=== PATIENT | female | born 1955 | race Caucasian/White ===

== ENCOUNTER 2017-07-02 12:25 | Outpatient (CLI) | payer BC | END 2017-07-02 12:26 | disposition home or self-care (01) | LOC: BICMAMMO 12:25 | PROVIDERS: ATTEND Internal Medicine | DX: Z12.31 Encounter for screening mammogram for malignant neoplasm of breast (principal) | CPT/HCPCS: 77063; 77067 ==

== ENCOUNTER 2017-08-16 07:45 | Outpatient (CLI) | payer BC ==
--- NOTE | 2017-08-16 15:49 | ULT ---
HEPATIC SONOGRAM WITH DUPLEX EVALUATION. HISTORY: Abnormal liver function tests. Liver disease. FINDINGS: Gallbladder has a normal appearance without evidence of stones. The common duct is 0.2 cm diameter. The liver is unremarkable without focal mass or intrahepatic biliary dilatation. No free fluid is v isible. The spleen is 8.5 cm. Good color and spectral Doppler flow are present within the hepatic and splenic arteries. Portal juno ous flow is towards the liver. Hepatic venous flow is towards the IVC. IMPRESSION: No significant abnormalities are demonstrated. No evidence of portal venous hypertension. POS: [facility]
== END 2017-08-16 07:46 | disposition home or self-care (01) ==
LOC: ULT 07:45
PROVIDERS: ATTEND Internal Medicine
DX: R10.10 Upper abdominal pain, unspecified (principal); K76.0 Fatty (change of) liver, not elsewhere classified; R11.0 Nausea; R14.0 Abdominal distension (gaseous)
CPT/HCPCS: 76705

== ENCOUNTER 2017-10-10 10:35 | Outpatient (CLI) | payer BC ==
--- NOTE | 2017-10-10 12:01 | RAD ---
FIVE VIEWS CERVICAL SPINE: HISTORY: Neck pain. Tingling sensation into right arm. FINDINGS: AP, lateral, open mouth odontoid, flexion, and extension views of cervical spine are obtained. There is disk space height loss with anterior and posterior osteophytes at C5-6 and C6-7. Disk space height loss is also seen at C7-T1. No evidence of significant ubaldo- or retrolisthesis is seen on flexion or extension views. IMPRESSION: Changes of spondylosis at C5-6 an C6-7. No evidence of significant facet inability is seen. No evid ence of ubaldo- or retrolisthesis is seen. POS: [facility]
--- NOTE | 2017-10-10 12:21 | MRI ---
MRI CERVICAL SPINE WITHOUT CONTRAST: Date: 10/10/17 HISTORY: Cervical spondylosis. Neck pain. Tingling sensation. COMPARISON: None. TECHNIQUE: MRI cervical spine is performed without intravenous Gadolinium administration. Multisequential, multi planar imaging is performed. FINDINGS: There is T1 marrow signal hypointensity with associated T2 and STIR hyperintensity involving the infe rior end plate of C5 and superior end plate of C6, suggesting Type I Modic change. There is straighte tamir of the normal cervical lordosis. 2.5 mm anterolisthesis of C3 upon C4, 1.7 mm anterolisthesis of C4 upon C5, and 2.6 mm anterolisthesis of C7 upon T1. No significant STIR hyperintensity to suggest vertebral body edema due to fracture. No MR evidence of ligamentous injury. Visualized brain parenchyma, cervicomedullary junction, cervical cord, and the upper thoracic cord pichardo ve normal size and signal intensity. C2-C3: There is a central disc osteophyte complex, without significant central canal stenosis. Neural forami na are patent. C3-C4: Broad based disc osteophyte complex with a central component. There is deformity of the thecal sac an d deformity of the cord. Moderate central canal stenosis. No T2 hyperintensity in the cord. Degenerat german changes in bilateral uncovertebral joints result in severe bilateral foraminal narrowing. C4-C5: There is a broad based disc osteophyte complex that abuts the thecal sac. There is deformity of the t hecal sac without obscuration of the subarachnoid space. Minimal deformity of the midline cord. No T2 hyperintensity in the cord. Mild central canal stenosis. Mild right foraminal narrowing. Moderate le ft foraminal narrowing due to degenerative change of the uncovertebral joint and facet hypertrophy. C5-C6: Broad based disc osteophyte complex effaces the thecal sac. Moderate central canal stenosis. No signa l abnormality in the cord. Degenerative changes in bilateral uncovertebral joints results in moderate bilateral foraminal narrowing. C6-C7: There is a broad based disc osteophyte complex that abuts the thecal sac. No significant central tg l stenosis. Degenerative changes in bilateral uncovertebral joints results in moderate bilateral fora reid narrowing. C7-T1: No significant disc osteophyte complex. No significant central canal stenosis. Foramina are patent. IMPRESSION: Degenerative changes of the cervical spine as above. There is significant central canal stenosis at C 3-C4 and C5-C6. There is no signal abnormality within the cord. POS: [facility]
== END 2017-10-10 10:36 | disposition home or self-care (01) ==
LOC: TBSIIMAG 10:35
PROVIDERS: ATTEND Neurological Surgery
DX: M47.812 Spondylosis without myelopathy or radiculopathy, cervical region (principal); M48.02 Spinal stenosis, cervical region
CPT/HCPCS: 72050; 72141

== ENCOUNTER 2017-10-25 08:04 | Outpatient (CLI) | payer BC ==
[2017-10-25 09:22] LABS: Hemoglobin 14.8 g/dL (12.0-16.0); Mean Corpuscular Hemoglobin 30.5 pg (27.0-31.0); Mean Corpuscular Volume 89.6 fl (81.0-99.0); Mean Platelet Volume 7.6 fL (7.4-10.4); Platelet Count 226 thou/uL (130-400); RBC Distribution Width 11.3 % (11.5-14.5); Red Blood Cell (RBC) Count 4.85 mill/uL (4.20-5.40); White Blood Cell (WBC) Count 5.4 thou/uL (4.8-10.8)
[2017-10-25 09:43] LABS: Anion Gap 15 mmol/L (10-20); BUN (Urea Nitrogen) 13 mg/dL (9.8-20.1); Calc. Creatinine Clearance 0 mL/min (70-130); Calcium 9.6 mg/dL (7.8-10.44); Carbon Dioxide 24 mmol/L (23-31); Chloride 107 mmol/L (98-107); Estimated GFR-MDRD 73; Glucose 100 mg/dL (80-115); Potassium 4.6 mmol/L (3.5-5.1); Sodium 141 mmol/L (136-145)
--- NOTE | 2017-10-25 14:08 | EKG ---
Test Reason : Blood Pressure : / mmHG Vent. Rate : 052 BPM Atrial Rate : 052 BPM P-R Int : 172 ms QRS Dur : 080 ms QT Int : 428 ms P-R-T Axes : 053 049 059 degrees QTc Int : 398 ms Sinus bradycardia Low voltage QRS Cannot rule out Anterior infarct , age undetermined Abnormal ECG Confirmed by KAREN CHAO ([id number]) on 10/25/2017 2:07:36 PM Referred By: AMBER Confirmed By:KAREN CHAO
== END 2017-10-25 08:05 | disposition home or self-care (01) ==
LOC: LABBT 08:04
PROVIDERS: ATTEND Neurological Surgery
DX: Z01.818 Encounter for other preprocedural examination (principal); M47.812 Spondylosis without myelopathy or radiculopathy, cervical region
CPT/HCPCS: 80048; 85027; 93005; 93010

== ENCOUNTER 2017-10-28 08:24 | Observation (INO) | payer BC ==
[2017-10-25 08:26] VITALS: BMI 33.2
[2017-10-28] MEDS ORDERED: CEFAZOLIN/Water 2 GM/20 ML SYRINGE ONE (09:10)
[2017-10-28] MEDS ORDERED: Sodium Chloride 0.9% 10 ML ONE (10:14)
[2017-10-28] MEDS ORDERED: Fentanyl 100 MCG/2 ML VIAL ONE ×4 (10:49→13:01)
[2017-10-28] MEDS ORDERED: hydrALAZINE 20 MG/ML VIAL ONE (12:20)
[2017-10-28] MEDS ORDERED: Promethazine HCl 25 MG/ML VIAL IM/IV PRN (12:34)
[2017-10-28] MEDS ORDERED: Ondansetron HCl/PF 4 MG/2 ML Vial IVP PRN ×3 (12:34→14:45)
[2017-10-28] MEDS ORDERED: hydrALAZINE 20 MG/ML VIAL SLOW IVP PRN (12:36)
[2017-10-28] MEDS ORDERED: Promethazine HCl 25 MG/ML VIAL IM PRN (12:37)
[2017-10-28] MEDS ORDERED: HYDROcodone/Acetaminophen 10/325 mg Tablet PO PRN ×2 (12:37)
[2017-10-28] MEDS ORDERED: Milk Of Magnesia 30 ML UDCUP PO PRN (12:37)
[2017-10-28] MEDS ORDERED: diphenhydrAMINE 25 MG CAP PO PRN (12:37)
[2017-10-28] MEDS ORDERED: traMADol HCl 50 MG TAB PO PRN ×2 (12:37)
[2017-10-28] MEDS ORDERED: Morphine 4 MG/ML Carpuject SLOW IVP PRN (12:37)
[2017-10-28] MEDS ORDERED: diphenhydrAMINE 50 MG/ML VIAL IVP PRN (12:37)
[2017-10-28] MEDS ORDERED: Promethazine HCl 12.5 MG SUPP PR PRN (12:37)
[2017-10-28] MEDS ORDERED: Promethazine 25 MG TAB PO PRN (12:37)
[2017-10-28] MEDS ORDERED: Sodium Chloride 0.9% 1,000 ML IV SCH (12:37)
--- NOTE | 2017-10-28 13:15 | OP ---
DATE OF PROCEDURE: 10/28/2017 SURGEON: Hari Robbins M.D. STRAWHAT BLOCKING OPERATOR: Dr. Cleveland. PROCEDURE: Anterior cervical diskectomy C3 through C6, interbody arthrodesis, intravertebral biomech anical device, local morselized autograft, demineralized bone matrix, anterior titanium instrumentati on C3-C6. PROCEDURE IN DETAIL: The patient was brought to the operating room and intubated. She was positione d supine, head in modest extension on a gel-filled donut. Incision was made in the right precervical area and dissecting medial to the sternocleidomastoid muscle, identified the anterior cervical spine and our level was confirmed by x-ray. We debrided extensive and severe anterior osteophytic disease , placed distraction across the disc spaces, and completely decompressed the intravertebral discs radha n to the level of the dura affected level. Complete decompression was achieved at each level. The b sepideh endplates were then decorticated for the purpose of arthrodesis and appropriately sized intravert ebral biomechanical PEEK device was brought into the field, filled with demineralized bone matrix and local morselized autograft, and tapped in place securely at C3-4, C4-5 and C5-6. Next, an anterior plate was brought into the field and secured to C3, C4, C5, and C6 using two 14 mm screws at each lev el. The wound was then extensively irrigated, immaculate hemostasis was secured, and the wound was c losed in anatomic layers.
[2017-10-28] MEDS: tiZANidine HCl 4 MG TAB PO PRN ×2 (14:49→20:49)
[2017-10-28] MEDS ORDERED: Ketorolac Tromethamine 30 MG/ML VIAL ONE (15:12)
[2017-10-28] MEDS ORDERED: PHENYLEPHRINE-NS 100 MCG/ML 10 ML SYRINGE ONE (15:12)
[2017-10-28] MEDS ORDERED: Dexamethasone 20 MG/5 ML VIAL ONE (15:12)
[2017-10-28] MEDS ORDERED: PROPOFOL 200 MG/20 ML VIAL ONE (15:12)
[2017-10-28] MEDS ORDERED: Lisinopril 5 MG TAB PO SCH (15:45)
[2017-10-28] MEDS ORDERED: CEFAZOLIN/Water 2 GM/20 ML SYRINGE SLOW IVP SCH (17:00)
[2017-10-28] MEDS: CEFAZOLIN/Water 2 GM/20 ML SYRINGE SLOW IVP SCH (20:46)
[2017-10-29] MEDS: CEFAZOLIN/Water 2 GM/20 ML SYRINGE SLOW IVP SCH (05:00)
--- NOTE | 2017-10-29 06:53 | DIS ---
DATE OF ADMISSION: 10/28/2017 DATE OF DISCHARGE: 10/29/2017 ATTENDING PHYSICIAN: Hari Robbins M.D., HOSPITAL COURSE: Patient is a 62-year-old female who was admitted following C3-C6 ACDF for cervical degenerative disk disease. There were no intraoperative complications once the patient was transitioned to the med/surg floor following the surgery for observation. Her pain was well control led with p.o. medications. She was tolerating regular diet and voiding appropriately. She has been ambulatory throughout the department, 5/5 strength throughout. No sensation changes in the upper ext remity. We will plan to discharge the patient home this morning. I have discussed home care precaut ions and follow up with her office in 2 weeks. I have let scripts for Clements 10/ and Zanaflex. Pl ease reach out to Neurosurgery for additional questions or concerns.
[2017-10-29 08:36] VITALS: BP 158/84
[2017-10-29] MEDS ORDERED: Vitami E (Dl,Tocopheryl Acet) 400 UNITS CAP PO SCH (09:00)
[2017-10-29] MEDS ORDERED: Fish Oil 1,000 MG CAP PO SCH (09:00)
[2017-10-29] MEDS ORDERED: Lisinopril 5 MG TAB PO SCH (09:00)
[2017-10-29] MEDS ORDERED: [UNRECOGNIZED DRUG - OTHER] PO SCH (09:00)
[2017-10-29] MEDS ORDERED: Ascorbic Acid 500 mg Chewable Tablet PO SCH (09:00)
[2017-10-29 09:40] VITALS: TEMP 98
== END 2017-10-29 10:07 | disposition home or self-care (01) ==
LOC: SDC 08:24 → SURG A 14:11
PROVIDERS: ADMIT Neurological Surgery; ATTEND Neurological Surgery
PROC: 0RG20A0 Fusion of 2 or more Cervical Vertebral Joints with Interbody Fusion Device, Anterior Approach, Anterior Column, Open Approach (ICD-10-PCS; principal; 2017-10-28)
DX: M50.322 Other cervical disc degeneration at C5-C6 level (principal); M48.02 Spinal stenosis, cervical region; Z88.0 Allergy status to penicillin; Z88.2 Allergy status to sulfonamides; Z98.890 Other specified postprocedural states
CPT/HCPCS: 76001; 96361; 96374; 96376; A4216; C1713; C1776; G0378; J0360; J1100; J1885; J2704; J3010; J3490

== ENCOUNTER 2017-11-12 15:06 | Outpatient (CLI) | payer BC ==
--- NOTE | 2017-11-12 15:31 | RAD ---
3 VIEWS CERVICAL SPINE: Date: 11/12/17 HISTORY: Cervical spondylosis, M47.12. AP, lateral, and open-mouth odontoid views of cervical spine obtained. Comparison made to previous exam from 11/09/15. FINDINGS: Images demonstrate ACDF with fusion of the C3, C4, C5, and C6 vertebra. Plates and screws are in good position. Disc spaces have disc spacers in place and are in good alignment. There is some disc space height loss at the C6-7 level, unchanged since the previous exam, compatible with changes of spondyl osis. No evidence of acute fractures or bony lesions seen. IMPRESSION: Mid cervical changes of spondylosis. No acute abnormality seen. POS: [facility]
== END 2017-11-12 15:07 | disposition home or self-care (01) ==
LOC: TBSIIMAG 15:06
PROVIDERS: ATTEND Neurological Surgery
DX: M47.12 Other spondylosis with myelopathy, cervical region (principal)
CPT/HCPCS: 72040

== ENCOUNTER 2017-12-31 15:25 | Outpatient (CLI) | payer BC ==
--- NOTE | 2017-12-31 16:06 | RAD ---
THREE VIEWS CERVICAL SPINE: Date: 12-31-17 History: Cervical spinal stenosis. Follow up neck surgery. Comparison: 11-12-17 FINDINGS: C1 to the cervicothoracic junction is seen on the lateral view. Post-surgical change related to anter ior cervical fusion are again noted with a plate and screws transfixing the C3-4, C4-5, and C5-6 leve ls. There is no change in alignment of the hardware. Intradiscal prostheses are noted. Surgical clips are seen anterior to the plate. No fracture or subluxation is seen. There are degenerative changes a gain present at the C6-7 and to a lesser extent, C7-T1 levels. There is no fracture or subluxation id entified. There has been no interval change when compared to the prior study. IMPRESSION: 1. Stable post-surgical changes of the cervical spine related to anterior cervical fusion. Degenerati ve changes are seen below the level of post-surgical change, which is stable from prior exam. POS: [facility]
== END 2017-12-31 15:26 | disposition home or self-care (01) ==
LOC: TBSIIMAG 15:25
PROVIDERS: ATTEND Neurological Surgery
DX: M48.02 Spinal stenosis, cervical region (principal); M47.892 Other spondylosis, cervical region; Z98.1 Arthrodesis status
CPT/HCPCS: 72040

== ENCOUNTER 2018-07-29 08:51 | Outpatient (CLI) | payer BC | END 2018-07-29 08:52 | disposition home or self-care (01) | LOC: BICMAMMO 08:51 | PROVIDERS: ATTEND Internal Medicine | DX: Z12.31 Encounter for screening mammogram for malignant neoplasm of breast (principal) | CPT/HCPCS: 77063; 77067 ==

== ENCOUNTER 2018-10-30 08:45 | Inpatient (IN) | payer BC ==
[2018-10-30 09:48] VITALS: BMI 31.0
[2018-11-04] MEDS ORDERED: Vancomycin HCl 1.5 GM in Sodium Chloride 0.9% 250 ML 300 ML IVPB SCH (08:45)
[2018-11-04] MEDS ORDERED: Tranexamic Acid 1,000 MG in Sodium Chloride 0.9% 100 ML IVPB SCH (09:00)
[2018-11-04] MEDS ORDERED: Levofloxacin 500 mg/D5W 100 ml Premix Bag ONE (09:17)
[2018-11-04] MEDS ORDERED: Tranexamic Acid 1,000 MG/10 ML VIAL ONE ×2 (09:17→13:41)
[2018-11-04] MEDS ORDERED: Sodium Chloride 0.9% 100 ML ONE (09:17)
[2018-11-04] MEDS ORDERED: Fentanyl 100 MCG/2 ML VIAL ONE ×3 (09:42→13:04)
[2018-11-04] MEDS ORDERED: Midazolam HCl 2 mg/2 ml Vial ONE (09:42)
[2018-11-04] MEDS ORDERED: HYDROcodone/Acetaminophen 10/325 mg Tablet PO PRN ×2 (10:24)
[2018-11-04] MEDS ORDERED: Acetaminophen 325 MG TAB PO PRN (10:24)
[2018-11-04] MEDS ORDERED: Promethazine HCl 25 MG/ML VIAL IM PRN ×3 (10:24→12:32)
[2018-11-04] MEDS ORDERED: Zolpidem Tartrate 5 MG TAB PO PRN ×2 (10:24→10:45)
[2018-11-04] MEDS ORDERED: diphenhydrAMINE 25 MG CAP PO PRN ×2 (10:24→10:45)
[2018-11-04] MEDS ORDERED: Ondansetron PF 4 MG/2 ML Vial IVP PRN ×2 (10:24→10:45)
[2018-11-04] MEDS ORDERED: traMADol HCl 50 MG TAB PO PRN ×3 (10:24→10:45)
[2018-11-04] MEDS ORDERED: Ropivacaine 0.2% HCl/PF 20 ML ONE (10:35)
[2018-11-04] MEDS ORDERED: Phenylephrine HCL 10 MG/ML VIAL ONE (10:35)
[2018-11-04] MEDS ORDERED: Lidocaine 2% Jelly 5 ML TUBE ONE (10:35)
[2018-11-04] MEDS ORDERED: diphenhydrAMINE 50 MG/ML VIAL IM PRN (10:45)
[2018-11-04] MEDS ORDERED: HYDROcodone/Acetaminophen 5/325 mg Tablet PO PRN ×2 (10:45)
[2018-11-04] MEDS ORDERED: Bupivacaine 0.25% 10 ML VIAL EPIDURAL PRN (10:45)
[2018-11-04] MEDS ORDERED: diphenhydrAMINE 50 MG/ML VIAL IVP PRN (10:45)
[2018-11-04] MEDS ORDERED: Hydrocerin (Eucerin) Cream 120 gm Jar TOP PRN (10:45)
[2018-11-04] MEDS ORDERED: Naloxone HCl 0.4 mg/ml Vial IVP PRN (10:45)
[2018-11-04] MEDS ORDERED: Ketorolac Tromethamine 30 MG/ML VIAL IVP PRN (10:45)
[2018-11-04] MEDS ORDERED: Promethazine HCl 25 MG SUPP PR PRN (10:45)
[2018-11-04] MEDS ORDERED: Naloxone HCl 0.4 mg/ml Vial IV PRN (10:45)
[2018-11-04] MEDS ORDERED: Promethazine HCl 25 MG/ML VIAL SLOW IVP PRN (12:32)
[2018-11-04] MEDS ORDERED: Ondansetron HCl/PF 4 MG/2 ML Vial IVP PRN (12:32)
[2018-11-04] MEDS ORDERED: Bupivacaine 0.25% HCL 30 ML VIAL ONE (13:04)
--- NOTE | 2018-11-04 13:09 | RAD ---
XR Hip Lt 2-3 View HISTORY: Postop COMPARISON: None. FINDINGS: There is a left hip prosthesis in place. The prosthesis is in good position. There is some lucency associated with the greater trochanter, this is seen on the AP projection only. It could be an overlying skinfold but potentially a nondisplaced fracture. Follow-up film may be helpful in as sessment. IMPRESSION: Questionable nondisplaced fracture of the greater trochanter region.
[2018-11-04] MEDS ORDERED: Fentanyl 5 mcg/Bup 0.075% Cadd 100 ML EPIDURAL ONE (13:16)
[2018-11-04] MEDS ORDERED: Acetaminophen 1,000 MG in Premix Bag 1 BAG IVPB SCH (13:30)
[2018-11-04] MEDS ORDERED: Ketorolac Tromethamine 30 MG/ML VIAL IVP SCH (13:30)
[2018-11-04] MEDS ORDERED: Dexamethasone 20 MG/5 ML VIAL ONE (14:39)
[2018-11-04] MEDS ORDERED: Glycopyrrolate 0.2 MG/ML 5 ML SYRINGE ONE (14:39)
[2018-11-04] MEDS ORDERED: Ondansetron PF 4 MG/2 ML Vial ONE (14:39)
[2018-11-04] MEDS ORDERED: PROPOFOL 200 MG/20 ML VIAL ONE (14:39)
[2018-11-04] MEDS ORDERED: Rocuronium Bromide 10 MG/ML (10ML VIAL) ONE (14:39)
[2018-11-04] MEDS ORDERED: PHENYLEPHRINE-NS 100 MCG/ML 10 ML SYRINGE ONE (14:39)
[2018-11-04] MEDS: Ketorolac Tromethamine 30 MG/ML VIAL IVP SCH ×2 (15:48→22:05)
--- NOTE | 2018-11-04 20:01 | PRG ---
DATE OF SERVICE: 11/04/2018 SUBJECTIVE: Ms. Benson is a very pleasant 63-year-old female with past medical history significant for hypertension, hypothyroidism, and severe osteoarthritis, who presented to the hospital today for elective left total hip arthroplasty with Dr. Walker. The Hospitalist Service has been consulted for further medical management of this patient. She did undergo successful left total hip arthroplasty this morning with Dr. Walker. She tolerated the procedure very well. She is seen postoperatively up in her room. She is sitting up in bed. She has absolutely no complaints at this time. She has no chest pain or shortness of breath. She has no pain, her epidural is still in place. She has been up out of the bed since her procedure. She has no nausea or vomiting. She is tolerating her diet. OBJECTIVE: VITAL SIGNS: Blood pressure 104/74, pulse 63, temperature 97.7, and respirations 18. GENERAL: The patient is a well-appearing, moderately obese female, sitting up in bed, in no acute distress. HEENT: Head, atraumatic and normocephalic. Mucous membranes are moist. Extraocular movements intact. NECK: Supple. No lymphadenopathy. She does have a left 2-inch scar present from previous cervical procedure. No carotid bruits. CV: S1 and S2. Regular rate and rhythm. No appreciable murmurs, rubs, or gallops. LUNGS: Regular respiratory rate and pattern. Clear to auscultation bilaterally. ABDOMEN: Positive bowel sounds. Soft. No masses. Nontender. NEUROLOGIC: Cranial nerves 2 through 12 are intact. She is nonfocal. SKIN: Warm and dry. No rashes. EXTREMITIES: No lower extremity pitting edema. Her left hip is dressed and wrapped. LABORATORY DATA: From October 30, 2018; white blood cell count 8, RBC 4.59, hemoglobin 14, hematocrit 41.9%, platelet count is 244. Sodium 139, potassium 4.0, chloride 105, BUN 15, creatinine 0.78. ASSESSMENT: 1. Status post left total hip arthroplasty with Dr. Walker performed today. 2. Hypothyroidism. 3. Hypertension. PLAN: We will continue the patient's home dose of [place] Thyroid. Vital sign review reveals systolic readings of 100s to 120s, and we will hold off on adding her antihypertensive medications at this time. We will continue to monitor her vital signs closely. The patient's pain is well controlled. We will continue postoperative orders per Dr. Walker. The care of this patient has been discussed with Dr. Santoyo, who agrees with plan as outlined above. Job ID: [id number]
[2018-11-04] MEDS: Aspirin 81 mg Enteric Coated Tablet PO SCH (20:33)
[2018-11-04] MEDS ORDERED: Vancomycin HCl 1 GM in Premix Bag 1 BAG IVPB SCH (21:00)
[2018-11-05] MEDS: Fentanyl 5 mcg/Bup 0.075% Cadd 100 ML EPIDURAL SCH ×2 (04:28→21:35)
[2018-11-05 05:13] LABS: Mean Corpuscular HGB CONC 32.5 g/dL (32.0-36.0); Mean Corpuscular Hemoglobin 29.8 pg (27.0-31.0); Mean Corpuscular Volume 91.8 fL (78.0-98.0); Mean Platelet Volume 7.4 fL (7.4-10.4); Platelet Count 202 thou/uL (130-400); RBC Distribution Width 11.5 % (11.5-14.5); White Blood Cell (WBC) Count 15.6 thou/uL (4.8-10.8)
[2018-11-05] MEDS: Ketorolac Tromethamine 30 MG/ML VIAL IVP SCH ×3 (06:15→21:34)
--- NOTE | 2018-11-05 07:52 | OP ---
DATE OF PROCEDURE: 11/04/2018 PREOPERATIVE DIAGNOSIS: Degenerative joint disease of the left hip. POSTOPERATIVE DIAGNOSIS: Degenerative joint disease of the left hip. PROCEDURES PERFORMED: Left total hip arthroplasty using a Kress Accolate 3.5 stem, standard 36 mm head, and a 50 mm PSL cup. ROTARY SHEAR CUTTER: Abilio. BLOOD LOSS: 100. SPECIMEN: None. DRAIN: None. COMPLICATION: None. PROCEDURE IN DETAIL: After informed consent was obtained in the preoperative holding area, the patient was taken to the operative suite where general anesthesia was induced. The patient was then positioned in the lateral decubitus position. The hip was then prepped and draped in usual sterile fashion. The patient received preoperative antibiotics. Prior to incision, time-out was called and all members of the surgical team agreed upon site, surgeon, and patient. After this, a longitudinal incision was made directly over the trochanter, noted by palpation extending 2 fingerbreadths above and below the trochanter. The deeper subcutaneous layer was undermined with Bovie electrocautery. The iliotibial band was encountered and incised sharply and the plane below this was developed bluntly. A Charnley retractor was placed to hold this opened. The lateral aspect of the trochanter and the abductor muscles were encountered and then reflected anteriorly off the trochanter using Bovie electrocautery. Once this was completed, the anterior capsule was then encountered and identified and copious capsulotomy was carried out, exposing the femoral neck and head. Dislocation maneuver was then performed and an in situ provisional neck cut was then made using the oscillating saw. Attention was then turned to acetabular preparation and sequential reaming was carried out up to the appropriate diameter. A trial was then malleted into place with good firm resistance and no pullout. The permanent acetabular shell was then malleted squarely into place, as was the appropriate liner. Once completed, the wound was copiously irrigated and attention was then turned to femoral preparation. Flexion and external rotation were performed of the exposed thigh and femoral elevators were then placed at the proximal aspect of the wound. Canal finder was used to establish the length of the canal and sequential reaming was carried out, followed by broaching. Once the appropriate stability was established with the trial broaches with flexion, extension and rotational stability, we did trial with neutral and 2 mm offset incremental necks. Once the appropriate size was decided upon, with good stability noted with flexion, extension, internal and external rotation and shuck being negative, we removed the femoral trial broach and malleted into place the permanent prosthesis with good firm fit, which was also stable to rotation. Again, the hip felt very stable to flexion, extension, internal and external rotation. Leg lengths appeared near anatomic clinically and we were quite happy with prosthesis placement. Copious irrigation was then carried out through the entirety of the wound. Primary closure of the abductors was accomplished with interrupted #2 Vicryl [id number] stitches and the IT band was then closed with interrupted #2 Vicryl, oversewn with a #2 running barbed Quill stitch. Subcutaneous fascia was closed with running barbed Quill stitch and a subcuticular Monocryl barbed Quill stitch was used for skin closure and augmented with skin cement. A sterile dressing was applied. The procedure was terminated without any complication. All counts were correct. The patient was awakened in the operative suite and taken to the recovery room in stable condition. Job ID: [id number]
[2018-11-05] MEDS: Senokot S 8.6-50 MG TAB PO SCH ×2 (08:59→21:09)
[2018-11-05] MEDS: Aspirin 81 mg Enteric Coated Tablet PO SCH ×2 (08:59→21:23)
[2018-11-05] MEDS: Ferrous Gluconate 324 MG TAB PO SCH ×2 (09:00→21:09)
[2018-11-05] MEDS: Multivitamin W/ Minerals 1 TAB PO SCH (09:00)
[2018-11-05] MEDS: Ascorbic Acid 500 mg Chewable Tablet PO SCH (09:01)
--- NOTE | 2018-11-05 11:45 | PDOC.PN ---
- Subjective Encounter Start Date: 11/05/18 Encounter Start Time: 08:10 -: old records requested/rev Patient seen and examined. No new complaints. No overnight events - Objective MAR Reviewed: Yes Vital Signs & Weight: Vital Signs (12 hours) Temp Pulse Resp BP Pulse Ox 11/05/18 08:32 98.7 F 75 15 95/58 L 92 L 11/05/18 04:22 97.9 F 71 16 102/61 94 L 11/05/18 00:56 98.6 F 71 20 98/52 L 93 L Weight Admit Weight 198 lb Weight 198 lb I&O: 11/04/18 11/05/18 11/06/18 06:59 06:59 06:59 Intake Total 625 Output Total 1000 Balance -375 Result Diagrams: 11/05/18 04:48 Phys Exam - Physical Examination Constitutional: NAD HEENT: PERRLA, moist MMs, sclera anicteric Neck: no JVD, supple Respiratory: no wheezing, no rales, no rhonchi Cardiovascular: RRR, no significant murmur, no rub Gastrointestinal: soft, non-tender, no distention, positive bowel sounds Musculoskeletal: no edema, pulses present epidural in place Neurological: non-focal, normal sensation Lymphatic: no nodes Psychiatric: normal affect, A&O x 3 Skin: no rash, normal turgor Dx/Plan (1) Status post left hip replacement Code(s): Z96.642 - PRESENCE OF LEFT ARTIFICIAL HIP JOINT Status: Acute (2) Anemia, normocytic normochromic Code(s): D64.9 - ANEMIA, UNSPECIFIED Status: Acute (3) Hypertension Code(s): I10 - ESSENTIAL (PRIMARY) HYPERTENSION Status: Chronic (4) Hypothyroidism Code(s): E03.9 - HYPOTHYROIDISM, UNSPECIFIED Status: Chronic (5) Obesity (BMI 30.0-34.9) Code(s): E66.9 - OBESITY, UNSPECIFIED Status: Chronic - Plan cont current plan of care, plan discussed w/ family, PT/OT * medication reviewed as below * symptomatic treatment * continue epidural as per anesthesia * medically stable * code status- full code * continue aspirin for dvt prophylaxis as per protocol * pain controlled * home meds. Review of Systems - Review of Systems ENT: negative: Ear Pain, Ear Discharge, Nose Pain, Nose Discharge, Nose Congestion, Mouth Pain, Mouth Swelling, Throat Pain, Throat Swelling, Other Respiratory: negative: Cough, Dry, Shortness of Breath, Hemoptysis, SOB with Excertion, Pleuritic Pain, Sputum, Wheezing Cardiovascular: negative: chest pain, palpitations, orthopnea, paroxysmal nocturnal dyspnea, edema, light headedness, other Gastrointestinal: negative: Nausea, Vomiting, Abdominal Pain, Diarrhea, Constipation, Melena, Hematochezia, Other Genitourinary: negative: Dysuria, Frequency, Incontinence, Hematuria, Retention , Other Musculoskeletal: negative: Neck Pain, Shoulder Pain, Arm Pain, Back Pain, Hand Pain, Leg Pain, Foot Pain, Other Skin: negative: Rash, Lesions, Nabeel, Bruising, Other - Medications/Allergies Allergies/Adverse Reactions: Allergies Allergy/AdvReac Type Severity Reaction Status Date / Time Penicillins Allergy Verified 10/30/18 09:47 Sulfa (Sulfonamide Allergy Verified 10/30/18 09:47 Antibiotics) Medications: Current Medications Hydrocodone Bitart/Acetaminophen ([place] 5/325) 1 tab PO Q4H PRN PRN Reason: Mild Pain 1-3 Hydrocodone Bitart/Acetaminophen ([place] 5/325) 2 tab PO Q4H PRN PRN Reason: For Moderate Pain 4-6 Ascorbic Acid (Vitamin C) 2,000 mg PO DAILY [facility] Last Admin: 11/05/18 09:01 Dose: 2,000 mg Aspirin (Ecotrin) 81 mg PO BID [facility] Last Admin: 11/05/18 08:59 Dose: 81 mg Bupivacaine HCl (Marcaine) 5 ml EPIDURAL ONE PRN PRN Reason: UNCONTROLLED PAIN Stop: 11/07/18 10:46 Cholecalciferol (Vitamin D3) 1,500 units PO DAILY [facility] Last Admin: 11/05/18 09:00 Dose: 1,500 units Diphenhydramine HCl (Benadryl) 25 mg PO Q3H PRN PRN Reason: Itching Diphenhydramine HCl (Benadryl) 25 mg IM Q3H PRN PRN Reason: Itching Diphenhydramine HCl (Benadryl) 25 mg IVP Q3H PRN PRN Reason: Itching Last Admin: 11/04/18 17:07 Dose: 25 mg Emollient Cream (Hydrocerin Cream) 0 gm TOP PRN PRN PRN Reason: Itching Ferrous Gluconate (Fergon) 324 mg PO BID [facility] Last Admin: 11/05/18 09:00 Dose: 324 mg Fentanyl Citrate (Fentanyl/Bupivacaine) 100 mls @ 6 mls/hr EPIDURAL INF [facility] Last Admin: 11/05/18 04:28 Dose: 100 mls Iron/Minerals/Multivitamins (Theragran M) 1 tab PO DAILY [facility] Last Admin: 11/05/18 09:00 Dose: 1 tab Ketorolac Tromethamine (Toradol) 15 mg IVP Q8HR [facility] Stop: 11/06/18 14:01 Last Admin: 11/05/18 06:15 Dose: 15 mg Miscellaneous Information (Communication Order-Pharmacy) 1 each FS ASDIR [facility] Naloxone HCl (Narcan) 0.2 mg IV Q5MIN PRN PRN Reason: RR <=8 OR OBTUNDED/UNAROUSABLE Naloxone HCl (Narcan) 0.1 mg IVP Q15MIN PRN PRN Reason: URINARY RETENTION Ondansetron HCl (Zofran) 4 mg IVP Q6H PRN PRN Reason: Nausea/Vomiting Ondansetron HCl (Zofran) 4 mg IVP Q6H PRN PRN Reason: Nausea/Vomiting Promethazine HCl (Phenergan) 12.5 mg IM Q4H PRN PRN Reason: Nausea/Vomiting Promethazine HCl (Phenergan) 12.5 mg IM Q4H PRN PRN Reason: Nausea Promethazine HCl (Phenergan Suppository) 25 mg TX Q4H PRN PRN Reason: Nausea/Vomiting Senna/Docusate Sodium (Senokot S) 2 tab PO BID [facility] Last Admin: 11/05/18 08:59 Dose: 2 tab Sodium Chloride (Flush - Normal Saline) 10 ml IVF PRN PRN PRN Reason: Saline Flush Thyroid ([place] Thyroid) 90 mg PO DAILY [facility] Last Admin: 11/05/18 09:01 Dose: 90 mg Tramadol HCl (Ultram) 50 mg PO Q6H PRN PRN Reason: Mild Pain 1-3 Tramadol HCl (Ultram) 100 mg PO Q6H PRN PRN Reason: Moderate Pain 4-6 Zolpidem Tartrate (Ambien) 5 mg PO HSPRN PRN PRN Reason: Insomnia
[2018-11-06 06:06] LABS: Hemoglobin 11.4 g/dL (12.0-16.0); Mean Corpuscular HGB CONC 33.5 g/dL (32.0-36.0); Mean Corpuscular Hemoglobin 30.7 pg (27.0-31.0); Mean Corpuscular Volume 91.7 fL (78.0-98.0); Mean Platelet Volume 7.8 fL (7.4-10.4); Platelet Count 174 thou/uL (130-400); RBC Distribution Width 11.5 % (11.5-14.5); Red Blood Cell (RBC) Count 3.71 mill/uL (4.20-5.40); White Blood Cell (WBC) Count 11.1 thou/uL (4.8-10.8)
[2018-11-06] MEDS: Ketorolac Tromethamine 30 MG/ML VIAL IVP SCH ×2 (06:31→15:09)
[2018-11-06] MEDS: Multivitamin W/ Minerals 1 TAB PO SCH (10:03)
[2018-11-06] MEDS: Ascorbic Acid 500 mg Chewable Tablet PO SCH (10:04)
[2018-11-06] MEDS: Aspirin 81 mg Enteric Coated Tablet PO SCH (10:05)
[2018-11-06] MEDS: Senokot S 8.6-50 MG TAB PO SCH (10:05)
[2018-11-06] MEDS: Ferrous Gluconate 324 MG TAB PO SCH (10:06)
--- NOTE | 2018-11-06 10:10 | PDOC.PN ---
- Subjective Encounter Start Date: 11/06/18 Encounter Start Time: 08:20 Patient seen and examined. No new complaints. No overnight events - Objective MAR Reviewed: Yes Vital Signs & Weight: Vital Signs (12 hours) Temp Pulse Resp BP Pulse Ox 11/06/18 09:00 98.0 F 75 18 153/78 H 93 L 11/06/18 03:40 98.2 F 76 16 135/80 95 Weight Admit Weight 198 lb Weight 198 lb I&O: 11/05/18 11/06/18 11/07/18 06:59 06:59 06:59 Intake Total 625 600 Output Total 1000 4000 Balance -375 -0760 Result Diagrams: 11/06/18 05:19 Phys Exam - Physical Examination Constitutional: NAD HEENT: PERRLA, moist MMs, sclera anicteric Neck: no JVD, supple Respiratory: no wheezing, no rales, no rhonchi Cardiovascular: RRR, no significant murmur, no rub Gastrointestinal: soft, non-tender, no distention, positive bowel sounds Musculoskeletal: no edema, pulses present Neurological: non-focal, normal sensation, moves all 4 limbs Lymphatic: no nodes Psychiatric: normal affect, A&O x 3 Skin: no rash, normal turgor Dx/Plan (1) Status post left hip replacement Code(s): Z96.642 - PRESENCE OF LEFT ARTIFICIAL HIP JOINT Status: Acute (2) Anemia, normocytic normochromic Code(s): D64.9 - ANEMIA, UNSPECIFIED Status: Acute (3) Hypertension Code(s): I10 - ESSENTIAL (PRIMARY) HYPERTENSION Status: Chronic (4) Hypothyroidism Code(s): E03.9 - HYPOTHYROIDISM, UNSPECIFIED Status: Chronic (5) Obesity (BMI 30.0-34.9) Code(s): E66.9 - OBESITY, UNSPECIFIED Status: Chronic - Plan cont current plan of care * medication reviewed as below * symptomatic treatment * see discharge vidhya. Review of Systems - Review of Systems ENT: negative: Ear Pain, Ear Discharge, Nose Pain, Nose Discharge, Nose Congestion, Mouth Pain, Mouth Swelling, Throat Pain, Throat Swelling, Other Respiratory: negative: Cough, Dry, Shortness of Breath, Hemoptysis, SOB with Excertion, Pleuritic Pain, Sputum, Wheezing Cardiovascular: negative: chest pain, palpitations, orthopnea, paroxysmal nocturnal dyspnea, edema, light headedness, other Gastrointestinal: negative: Nausea, Vomiting, Abdominal Pain, Diarrhea, Constipation, Melena, Hematochezia, Other Genitourinary: negative: Dysuria, Frequency, Incontinence, Hematuria, Retention , Other Musculoskeletal: negative: Neck Pain, Shoulder Pain, Arm Pain, Back Pain, Hand Pain, Leg Pain, Foot Pain, Other - Medications/Allergies Allergies/Adverse Reactions: Allergies Allergy/AdvReac Type Severity Reaction Status Date / Time Penicillins Allergy Verified 10/30/18 09:47 Sulfa (Sulfonamide Allergy Verified 10/30/18 09:47 Antibiotics) Medications: Current Medications Hydrocodone Bitart/Acetaminophen (Lutz 5/325) 1 tab PO Q4H PRN PRN Reason: Mild Pain 1-3 Hydrocodone Bitart/Acetaminophen (Lutz 5/325) 2 tab PO Q4H PRN PRN Reason: For Moderate Pain 4-6 Ascorbic Acid (Vitamin C) 2,000 mg PO DAILY [facility] Last Admin: 11/05/18 09:01 Dose: 2,000 mg Aspirin (Ecotrin) 81 mg PO BID [facility] Last Admin: 11/05/18 21:23 Dose: 81 mg Bupivacaine HCl (Marcaine) 5 ml EPIDURAL ONE PRN PRN Reason: UNCONTROLLED PAIN Stop: 11/07/18 10:46 Cholecalciferol (Vitamin D3) 1,500 units PO DAILY [facility] Last Admin: 11/05/18 09:00 Dose: 1,500 units Diphenhydramine HCl (Benadryl) 25 mg PO Q3H PRN PRN Reason: Itching Diphenhydramine HCl (Benadryl) 25 mg IM Q3H PRN PRN Reason: Itching Diphenhydramine HCl (Benadryl) 25 mg IVP Q3H PRN PRN Reason: Itching Last Admin: 11/04/18 17:07 Dose: 25 mg Emollient Cream (Hydrocerin Cream) 0 gm TOP PRN PRN PRN Reason: Itching Ferrous Gluconate (Fergon) 324 mg PO BID [facility] Last Admin: 11/05/18 21:09 Dose: 324 mg Fentanyl Citrate (Fentanyl/Bupivacaine) 100 mls @ 6 mls/hr EPIDURAL INF [facility] Last Admin: 11/05/18 21:35 Dose: 100 mls Iron/Minerals/Multivitamins (Theragran M) 1 tab PO DAILY [facility] Last Admin: 11/05/18 09:00 Dose: 1 tab Ketorolac Tromethamine (Toradol) 15 mg IVP Q8HR [facility] Stop: 11/06/18 14:01 Last Admin: 11/06/18 06:31 Dose: 15 mg Miscellaneous Information (Communication Order-Pharmacy) 1 each FS ASDIR KANDACE Naloxone HCl (Narcan) 0.2 mg IV Q5MIN PRN PRN Reason: RR <=8 OR OBTUNDED/UNAROUSABLE Naloxone HCl (Narcan) 0.1 mg IVP Q15MIN PRN PRN Reason: URINARY RETENTION Ondansetron HCl (Zofran) 4 mg IVP Q6H PRN PRN Reason: Nausea/Vomiting Ondansetron HCl (Zofran) 4 mg IVP Q6H PRN PRN Reason: Nausea/Vomiting Promethazine HCl (Phenergan) 12.5 mg IM Q4H PRN PRN Reason: Nausea/Vomiting Promethazine HCl (Phenergan) 12.5 mg IM Q4H PRN PRN Reason: Nausea Promethazine HCl (Phenergan Suppository) 25 mg SD Q4H PRN PRN Reason: Nausea/Vomiting Senna/Docusate Sodium (Senokot S) 2 tab PO BID [facility] Last Admin: 11/05/18 21:09 Dose: 2 tab Sodium Chloride (Flush - Normal Saline) 10 ml IVF PRN PRN PRN Reason: Saline Flush Last Admin: 11/05/18 14:01 Dose: 10 ml Thyroid ([place] Thyroid) 90 mg PO DAILY [facility] Last Admin: 11/05/18 09:01 Dose: 90 mg Tramadol HCl (Ultram) 50 mg PO Q6H PRN PRN Reason: Mild Pain 1-3 Tramadol HCl (Ultram) 100 mg PO Q6H PRN PRN Reason: Moderate Pain 4-6 Zolpidem Tartrate (Ambien) 5 mg PO HSPRN PRN PRN Reason: Insomnia
--- NOTE | 2018-11-06 10:11 | DIS ---
DATE OF ADMISSION: 11/04/2018 DATE OF DISCHARGE: 11/07/2018 DISCHARGE DISPOSITION: Home. PRIMARY DISCHARGE DIAGNOSIS: Status post left total hip replacement. SECONDARY DISCHARGE DIAGNOSES: 1. Anemia, normocytic normochromic. 2. Hypertension. 3. Hypothyroidism. 4. Obesity with body mass index 31. PRIMARY PROCEDURE/OPERATION: Left hip replacement. RADIOLOGICAL INVESTIGATION: Hip x-ray. SIGNIFICANT LABORATORY DATA: Hemoglobin 11.4. DISCHARGE MEDICATION: 1. Aspirin 81 mg p.o. b.i.d. for DVT prophylaxis. 2. Pain medication as per primary team. 3. Vitamin C 2000 mg p.o. daily. 4. Vitamin D3 1500 units p.o. daily. 5. Fish oil one capsule daily. 6. Lisinopril 10 mg bedtime. 7. Toprol XL 50 mg daily. 8. Lake Thyroid 90 mg p.o. daily. 9. Vitamin E 400 units p.o. daily. CONTRAINDICATION: None. CODE STATUS: Full code. INPATIENT WIND INSTRUMENT REPAIRER: Dr. Walker was primary. Emmy Team was following for medical problem. TEST RESULT PENDING ON DISCHARGE: None. ALLERGIES: PENICILLIN AND SULFA DRUGS. DISCHARGE PLAN: Posthospital, the patient will follow up with Dr. Walker on December 01, 2018, at 10:00 a.m. HOSPITAL COURSE: A 63-year-old female, who was admitted by Dr. Walker for left hip replacement, which was done on November 04, 2018, without any problem. Postoperatively, the patient was given aspirin for DVT prophylaxis. She had epidural for pain control. Her pain was well controlled with pain medication. The patient was doing well with PT/OT while in the hospital. She is planned for discharge to home. Emmy Team was managing medical problem. We continued all her home medication while in hospital as well as on discharge. Overall, the patient is medically stable for discharge today. Job ID: [id number]
[2018-11-06] MEDS ORDERED: Lisinopril 10 MG TAB PO SCH (14:30)
[2018-11-06] MEDS ORDERED: cloNIDine 0.1 MG TAB PO SCH (15:30)
[2018-11-06 15:47] VITALS: TEMP 97.8
[2018-11-06 18:19] VITALS: BP 148/70
== END 2018-11-06 18:15 | disposition home or self-care (01) | DRG 470 ==
LOC: SJJU 11-04 08:03 → SURG B 11-04 14:27
PROVIDERS: ADMIT Orthopaedic Surgery; ATTEND Orthopaedic Surgery
PROC: 0SRB0JZ Replacement of Left Hip Joint with Synthetic Substitute, Open Approach (ICD-10-PCS; principal; 2018-11-04)
DX: M16.12 Unilateral primary osteoarthritis, left hip (principal); I10 Essential (primary) hypertension; E03.9 Hypothyroidism, unspecified; D64.9 Anemia, unspecified; E66.9 Obesity, unspecified; Z68.31 Body mass index [BMI] 31.0-31.9, adult; Z88.0 Allergy status to penicillin; Z88.2 Allergy status to sulfonamides; Z98.890 Other specified postprocedural states
CPT/HCPCS: 36415; 85027; 86850; 86900; 86901; J0131; J1100; J1200; J1885; J1956; J2250; J2370; J2405; J2704; J2795; J3010; J3370; J3490; J7050; S0020

== ENCOUNTER 2018-10-30 09:24 | Outpatient (CLI) | payer BC ==
[2018-10-30 12:40] LABS: #Basophils 0.1 thou/uL (0.0-0.2); #Eosinphils 0.3 thou/uL (0.0-0.7); #Lymphocytes 2.4 thou/uL (1.20-3.40); #Monocytes 0.7 thou/uL (0.11-0.59); #Neutrophils 4.5 thou/uL (1.40-6.50); %Basophils 0.6 % (0.0-1.0); %Eosinophils 3.9 % (0.0-10.0); %Lymphocytes 29.7 % (21.0-51.0); %Monocytes 9.2 % (0.0-10.0); %Neutrophils 56.6 % (42.0-75.0); Mean Corpuscular HGB CONC 33.4 g/dL (32.0-36.0); Mean Corpuscular Hemoglobin 30.5 pg (27.0-31.0); Mean Corpuscular Volume 91.2 fL (78.0-98.0); Mean Platelet Volume 7.4 fL (7.4-10.4); Platelet Count 244 thou/uL (130-400); RBC Distribution Width 11.4 % (11.5-14.5); Red Blood Cell (RBC) Count 4.59 mill/uL (4.20-5.40)
[2018-10-30 12:45] LABS: INR-International Normal Ratio 1.1; Prothrombin Time 14.2 SEC (12.0-14.7)
[2018-10-30 12:58] LABS: Anion Gap 11 mmol/L (10-20); BUN (Urea Nitrogen) 15 mg/dL (9.8-20.1); Calc. Creatinine Clearance 0 mL/min (70-130); Calcium 9.4 mg/dL (7.8-10.44); Carbon Dioxide 27 mmol/L (23-31); Chloride 105 mmol/L (98-107); Estimated GFR-MDRD 75; Glucose 81 mg/dL (80-115); Sodium 139 mmol/L (136-145)
[2018-10-30 13:10] LABS: Bilirubin Negative (Negative); Blood, Urine Negative (Negative); Clarity CLEAR (Clear); Glucose, Urine (Dipstick) Negative (Negative); Leukocyte Moderate (Negative); Nitrite Negative (Negative); Protein, Urine (Dipstick) Negative (Neg-Trace); Specific Gravity, Urine 1.024 (1.002-1.036); Urobilinogen 0.2 mg/dL (0.2-1.0)
[2018-10-30 13:12] LABS: Bacteria/HPF Rare-Few HPF (None Seen); Hyaline Casts/LPF 7-10 HYALINE CAST LPF (0-3 Hyaline); Pathc Cast-AUWi Flag 1.36 (0-2.49); WBC/HPF 21-50 HPF (0-3)
== END 2018-10-30 09:25 | disposition home or self-care (01) ==
LOC: LABBT 09:24
PROVIDERS: ATTEND Orthopaedic Surgery
DX: Z01.818 Encounter for other preprocedural examination (principal); M16.12 Unilateral primary osteoarthritis, left hip
CPT/HCPCS: 80048; 81001; 85025; 85610; 87081; 93005; 93010

== ENCOUNTER 2019-07-30 08:21 | Outpatient (CLI) | payer BC ==
--- NOTE | 2019-07-30 09:24 | MMO ---
Bilateral MAMMO Bilat Screen [facility]. CLINICAL HISTORY: Patient is 64 years old and is seen for screening. The patient has no family history of breast cancer. The patient has no personal history of cancer. VIEWS: The views performed were: bilateral craniocaudal with tomosynthesis and bilateral mediolateral oblique with tomosynthesis. FILMS COMPARED: The present examination has been compared to prior imaging studies performed at [facility] on 05/16/2015, 06/26/2016, 07/02/2017 and 07/29/2018. This study has been interpreted with the assistance of computer-aided detection. MAMMOGRAM FINDINGS: The breasts are heterogeneously dense, which could obscure a lesion on mammography. Finding 1: There are stable benign appearing calcifications seen in both breasts. Finding 2: There are stable benign appearing densities seen in both breasts. There are no suspicious masses, suspicious calcifications, or new areas of architectural distortion. IMPRESSION: THERE IS NO MAMMOGRAPHIC EVIDENCE OF MALIGNANCY. A ROUTINE FOLLOW-UP MAMMOGRAM IN 1 YEAR IS RECOMMENDED. THE RESULTS OF THIS EXAM WERE SENT TO THE PATIENT. ACR BI-RADS Category 2 - Benign finding MAMMOGRAPHY NOTE: 1. A negative mammogram report should not delay a biopsy if a dominant of clinically suspicious mass is present. 2. Approximately 10% to 15% of breast cancers are not detected by mammography. 3. Adenosis and dense breasts may obscure an underlying neoplasm. Reported by: SMILEY ORTIZ MD Electonically Signed: [id number]
== END 2019-07-30 08:22 | disposition home or self-care (01) ==
LOC: BICMAMMO 08:21
PROVIDERS: ATTEND Internal Medicine
DX: Z12.31 Encounter for screening mammogram for malignant neoplasm of breast (principal)
CPT/HCPCS: 77063; 77067

== ENCOUNTER 2019-11-30 19:30 | Outpatient (CLI) | payer BC | END 2019-11-30 19:31 | disposition home or self-care (01) | LOC: SLEEPLAB 19:30 | PROVIDERS: ATTEND Internal Medicine | DX: G47.33 Obstructive sleep apnea (adult) (pediatric) (principal); R53.83 Other fatigue; R06.83 Snoring; G47.00 Insomnia, unspecified; I10 Essential (primary) hypertension; G47.10 Hypersomnia, unspecified | CPT/HCPCS: 95811 ==

== ENCOUNTER 2020-06-30 08:11 | Outpatient (CLI) | payer BC ==
[2020-06-30 12:06] LABS: #Basophils 0.1 10x3/uL (0.0-0.2); #Eosinphils 0.2 10x3/uL (0.0-0.5); #Monocytes 0.6 10x3/uL (0.0-1.1); #Neutrophils 3.9 10x3/uL (1.5-8.4); %Basophils 0.9 % (0.0-2.0); %Eosinophils 2.6 % (0.0-6.0); %Lymphocytes 25.9 % (18.0-47.0); %Monocytes 9.9 % (0.0-10.0); %Neutrophils 60.4 % (40.0-75.0); Hemoglobin 13.9 g/dL (12.0-16.0); Mean Corpuscular HGB CONC 32.3 G/DL (32.0-36.0); Mean Corpuscular Hemoglobin 29.3 PG (27.0-33.0); Mean Corpuscular Volume 90.7 fl (80.0-100.0); Mean Platelet Volume 10.3 fl (7.4-10.4); Platelet Count 248 10x3/uL (130-400); RBC Distribution Width 12.5 % (11.5-14.5); Red Blood Cell (RBC) Count 4.75 10x6/uL (3.90-5.20); White Blood Cell (WBC) Count 6.4 10x3/uL (4.5-11.0)
[2020-06-30 12:11] LABS: Bilirubin Neg (Negative); Blood, Urine 10 (Negative); Clarity Clear (Clear); Glucose, Urine (Dipstick) Normal (Negative); Ketone, Urine Negative (Negative); Leukocyte 25 (Negative); Nitrite Negative (Negative); Protein, Urine (Dipstick) Negative (Neg-Trace); Urobilinogen Normal mg/dL (Less than 2)
[2020-06-30 12:18] LABS: Prothrombin Time 10.9 sec (9.5-12.1)
[2020-06-30 12:19] LABS: Anion Gap 12 mmol/L (10-20); BUN (Urea Nitrogen) 17 mg/dL (9.8-20.1); Calc. Creatinine Clearance 0 mL/min (70-130); Calcium 9.7 mg/dL (7.8-10.44); Carbon Dioxide 27 mmol/L (23-31); Chloride 106 mmol/L (98-107); Glucose 89 mg/dL (80-115); Potassium 4.9 mmol/L (3.5-5.1); Sodium 140 mmol/L (136-145)
[2020-06-30 12:32] LABS: Bacteria/HPF 1+ HPF (None Seen); RBC/HPF 0-3 HPF (0-3); WBC/HPF 0-3 HPF (0-3)
[2020-07-01 02:11] LABS: SARS-CoV-2 MS2 Positive; SARS-CoV-2 N Gene Negative; SARS-CoV-2 S Gene Negative; SARS-CoV-2 by NAA Not Detected (NotDetected); SARS-CoV-2 orf1ab Negative
== END 2020-06-30 08:12 | disposition home or self-care (01) ==
LOC: LABBT 08:11
PROVIDERS: ATTEND Orthopaedic Surgery
DX: Z01.818 Encounter for other preprocedural examination (principal); M17.12 Unilateral primary osteoarthritis, left knee; Z20.828 Contact with and (suspected) exposure to other viral communicable diseases
CPT/HCPCS: 80048; 81001; 85025; 85610; 87081; 87635; 93005; 93010; U0003

== ENCOUNTER 2020-08-03 14:15 | Inpatient (IN) | payer MEDICARE, OTHER ==
[2020-08-05 11:20] VITALS: BMI 31.3
[2020-08-08] MEDS ORDERED: Ondansetron PF 4 MG/2 ML Vial IVP PRN ×2 (06:51→09:00)
[2020-08-08] MEDS ORDERED: Fentanyl 100 MCG/2 ML VIAL SLOW IVP PRN (06:51)
[2020-08-08] MEDS ORDERED: Promethazine HCl 25 MG/ML VIAL IM PRN ×2 (06:51→09:00)
[2020-08-08] MEDS ORDERED: HYDROcodone/Acetaminophen 10/325 mg Tablet PO PRN ×3 (06:51→09:00)
[2020-08-08] MEDS ORDERED: Acetaminophen 325 MG TAB PO PRN (06:51)
[2020-08-08] MEDS ORDERED: Zolpidem Tartrate 5 MG TAB PO PRN ×2 (06:51→09:00)
[2020-08-08] MEDS ORDERED: diphenhydrAMINE 25 MG CAP PO PRN (06:51)
[2020-08-08] MEDS ORDERED: Morphine 2 MG/ML VIAL SLOW IVP PRN (06:51)
[2020-08-08] MEDS ORDERED: traMADol HCl 50 MG TAB PO PRN ×3 (06:51→09:00)
[2020-08-08] MEDS ORDERED: Tranexamic Acid 1,000 MG/10 ML VIAL ONE (07:37)
[2020-08-08] MEDS ORDERED: Sodium Chloride 0.9% 100 ML ONE (07:38)
[2020-08-08] MEDS ORDERED: Levofloxacin 500 mg/D5W 100 ml Premix Bag ONE (07:38)
[2020-08-08] MEDS ORDERED: Vancomycin 1.5 GRAM/300 ML BAG ONE (07:46)
[2020-08-08] MEDS ORDERED: Midazolam HCl 2 mg/2 ml Vial ONE (08:24)
[2020-08-08] MEDS ORDERED: Fentanyl 100 MCG/2 ML VIAL ONE ×3 (08:24→11:36)
[2020-08-08] MEDS ORDERED: Fentanyl 100 MCG/2 ML VIAL IV PRN (08:51)
[2020-08-08] MEDS ORDERED: Aspirin 81 mg Enteric Coated Tablet PO SCH (09:00)
[2020-08-08] MEDS ORDERED: Ropivacaine HCl/PF 250 ML in Premix Bag 1 BAG NERVE BLCK SCH (09:00)
[2020-08-08] MEDS ORDERED: PHENYLEPHRINE-NS 100 MCG/ML 10 ML SYRINGE ONE (10:26)
[2020-08-08] MEDS ORDERED: Dexamethasone 20 MG/5 ML VIAL ONE (10:26)
[2020-08-08] MEDS ORDERED: Ondansetron PF 4 MG/2 ML Vial ONE (10:26)
[2020-08-08] MEDS ORDERED: PROPOFOL 200 MG/20 ML VIAL ONE (10:26)
[2020-08-08] MEDS ORDERED: ePHEDrine 50 MG/ML VIAL ONE (10:26)
--- NOTE | 2020-08-08 11:11 | RAD ---
XR Knee Lt 2 View History: Total knee postop Comparison: Radiograph May 2020 Findings: Satisfactory appearance left total knee arthroplasty and patellar resurfacing. Expected pos toperative gas and edema. Impression: Satisfactory postoperative appearance.
[2020-08-08] MEDS ORDERED: Ropivacaine 2% HCl/PF (20 MG/10 ML VIAL) ONE (11:22)
[2020-08-08] MEDS ORDERED: Bupivacaine HCl 0.5%/Epinephrine 1:200,000/PF 30 ml Vial ONE (11:22)
[2020-08-08] MEDS ORDERED: Sodium Chloride 0.9% 50 ML ONE (11:36)
[2020-08-08] MEDS ORDERED: Ketorolac Tromethamine 30 MG/ML VIAL IVP SCH (12:00)
--- NOTE | 2020-08-08 12:06 | OP ---
DATE OF PROCEDURE: 08/08/2020 DICTATED FOR: Don Walker MD. PREOPERATIVE DIAGNOSIS: End-stage tricompartmental osteoarthritis, left knee. POSTOPERATIVE DIAGNOSIS: End-stage tricompartmental osteoarthritis, left knee. PROCEDURE PERFORMED: Cemented cruciate-sparing computer-assisted navigated left total knee arthroplasty. MAILROOM ASSISTANT: Alvin Paz PA-C The hotel assistant general manager/co-surgeon was present through the entire procedure and was responsible for providing exposure, tissue retraction and any necessary limb or tissue manipulation required to obtain necessary reduction or hardware placement. The hotel assistant general manager/co-surgeon also provided bleeding control, tissue closure, and suturing in conjunction with the primary surgeon. ANESTHESIA: General via LMA, augmented with indwelling adductor canal block and a single-shot sciatic block. COMPONENTS USED: [employer] Triathlon size 4 femoral component, cemented cruciate sparing, with a size 4 cemented primary tibial baseplate, 9-mm polyethylene fixed bearing insert, and A32 patella button. TOURNIQUET TIME: 52 minutes at 300 mmHg. FINDINGS: End-stage severe degenerative tricompartmental disease, [id number] arthrosis, periarticular osteophyte formation, large tears, effusion, hypertrophic synovium, and changes consistent with degenerative genu varum. ESTIMATED BLOOD LOSS: Less than 100. COMPLICATIONS: None. SPECIMENS: None. DRAINS: None. COUNTS: Correct. INDICATIONS FOR SURGERY: Melanie is a 65-year-old white female who has had progressive left knee pain and problem with standing and walking for the last 5 to 7 years. She has failed conservative management and elected to proceed with total knee arthroplasty as definitive treatment of her pain. PROCEDURE IN DETAIL: After informed consent was obtained in the preoperative holding area, the patient was taken to the operative suite where general anesthesia was induced. Once adequate level of general anesthesia was obtained, the patient was positioned and a well-padded tourniquet was placed around the left proximal thigh. The left lower extremity was then prepped and draped in the usual sterile fashion. Prior to exsanguination, a time-out was called and all members of the surgical team agreed upon site, surgeon, and patient. The extremity was then exsanguinated and the tourniquet was raised. A midline longitudinal incision was then made directly over the patella extending 2 fingerbreadths above the superior pole of the patella and 2 fingerbreadths inferior to the inferior patellar pole of the patella. Deeper subcutaneous layers were dissected sharply and local bleeding was controlled with Bovie electrocautery. A quad tendon longitudinal split was then made sharply and a median parapatellar arthrotomy was carried out both sharp and with Bovie electrocautery, carried down to 1 fingerbreadth medial to the tibial tubercle. The knee was then placed into flexion and the patella was everted nicely, and a copious fat pad ectomy was performed allowing for greater exposure of the tibia. The computer-assisted distal femoral fiducial was then placed and pinned firmly, and the distal femoral cutting guide was pinned firmly into place. The oscillating saw was then used to remove the appropriate amount of bone. The 4-in-1 cutting block was then placed on the distal femur and the oscillating saw was used to remove the appropriate amount of bone off the anterior, posterior, and chamfer cuts. After completion of bone cuts, the anterior cruciate ligament was resected sharply and the posterior cruciate ligament retractor was placed and the tibia was subluxed for better exposure. Partial meniscectomies were carried out, and the tibial computer-assisted fiducial was pinned, and the cutting guide was placed. Oscillating saw was then used to remove the bone, with Hohmann retractors used to take care and protect the collateral ligaments. After the tibial resection was performed, a laminar leaf stripper was placed in between the freshened bone cuts. The knee placed at 90 degrees and further bilateral meniscectomies were carried out, and the curved osteotome and curettage were used to remove any excess bone spurs in the posterior compartment. The trial femoral component, tibial baseplate were placed with the appropriate polyethylene trial insert with an appropriate polyethylene spacer and patellar button. The knee was taken through full range of motion with flexion and extension from 0 to 90 degrees and patellar broach squarely in the trochlea without any squinting or subluxation noted. The knee was also stable to varus and valgus stressing at 0, 15, 45, and 90 degrees of flexion. The drawer was negative. All trial components were then removed and the keel punch was used to provide the appropriate defect in the tibia with a mallet. The freshened bone cuts were copiously irrigated with pulsatile lavage of about 1.5 L to remove all excess debris. The freshened bone cuts were then dried with suction and lap sponge. The knee was placed in flexion and retractors were placed to provide access to all bone cuts. Tobramycin-impregnated methyl methacrylate cement was then placed on the freshened bone cuts and implants which were malleted firmly into place. Curettage and Argos elevators were used to remove any excess bone cement. The knee was placed into full extension and the patellar button was placed under compression, and the cement was allowed to cure. Once completed, the components were again taken through full range of motion and copious irrigation of the knee was carried out with another liter of normal saline. All components were inspected fully with full range of motion and varus and valgus stressing. There was no laxity noted and full extension was observed clinically. Primary closure was accomplished with #2 interrupted Vicryl stitch of the arthrotomy defect. This was oversewn with a #2 running Quill barbed stitch. The subcutaneous layer was then closed with a running 0 barbed Monocryl stitch and skin closure accomplished with a running subcuticular 3-0 Monocryl barbed Quill stitch and augmented with cement on the skin. Tourniquet was lowered. Good spontaneous return of distal pulses was noted clinically and a sterile dressing was applied to the incision. The procedure was terminated without any complications. The patient was awakened in the operative suite and taken to the recovery room in stable condition. The hotel assistant general manager surgeon helped throughout the procedure by positioning the patient, stabilizing the limb, holding retractors, aligning the prosthesis, and closure of procedure site. Job ID: [id number]
[2020-08-08] MEDS: Senokot S 8.6-50 MG TAB PO SCH ×2 (13:33→19:51)
[2020-08-08] MEDS: Cholecalciferol 1,000 UNITS (25 MCG) TAB PO SCH (13:33)
[2020-08-08] MEDS: Aspirin 81 mg Enteric Coated Tablet PO SCH ×2 (13:34→19:51)
[2020-08-08] MEDS: Ketorolac Tromethamine 30 MG/ML VIAL IVP SCH ×2 (13:51→19:53)
[2020-08-08] MEDS: Sodium Chloride 0.9% 1,000 ML IV SCH ×2 (13:52→19:51)
[2020-08-08] MEDS ORDERED: Ketorolac Tromethamine 30 MG/ML VIAL IM SCH (14:00)
[2020-08-08] MEDS: Lisinopril 10 MG TAB PO SCH (19:52)
[2020-08-08] MEDS ORDERED: Vancomycin HCl 1.5 GM in Sodium Chloride 0.9% 250 ML 300 ML IVPB SCH (20:00)
[2020-08-08] MEDS: HYDROcodone/Acetaminophen 10/325 mg Tablet PO PRN (22:34)
[2020-08-09] MEDS: Ketorolac Tromethamine 30 MG/ML VIAL IVP SCH ×4 (02:51→20:09)
[2020-08-09] MEDS: Sodium Chloride 0.9% 1,000 ML IV SCH ×3 (02:52→22:48)
[2020-08-09] MEDS: HYDROcodone/Acetaminophen 10/325 mg Tablet PO PRN ×3 (02:53→13:15)
[2020-08-09 05:54] LABS: Hemoglobin 11.3 g/dL (12.0-16.0); Mean Corpuscular Hemoglobin 29.9 pg (27.0-31.0); Mean Corpuscular Volume 90.5 fL (78.0-98.0); Mean Platelet Volume 7.2 fL (7.4-10.4); Platelet Count 187 thou/uL (130-400); RBC Distribution Width 11.4 % (11.5-14.5); Red Blood Cell (RBC) Count 3.79 mill/uL (4.20-5.40); White Blood Cell (WBC) Count 15.9 thou/uL (4.8-10.8)
[2020-08-09] MEDS: Senokot S 8.6-50 MG TAB PO SCH ×2 (08:15→20:10)
[2020-08-09] MEDS: Cholecalciferol 1,000 UNITS (25 MCG) TAB PO SCH (08:16)
[2020-08-09] MEDS: Multivitamin W/ Minerals 1 TAB PO SCH (08:16)
[2020-08-09] MEDS: Ferrous Gluconate 324 MG TAB PO SCH ×2 (08:16→17:24)
[2020-08-09] MEDS: Ascorbic Acid 500 mg Chewable Tablet PO SCH (08:16)
[2020-08-09] MEDS: Aspirin 81 mg Enteric Coated Tablet PO SCH ×2 (08:16→20:10)
[2020-08-09] MEDS ORDERED: FLU VACC QS2020-21(65YR UP)/PF 240 MCG/0.7 ML SYRINGE IM ONE (09:00)
--- NOTE | 2020-08-09 12:05 | PRG ---
DATE OF SERVICE: 08/09/2020 SUBJECTIVE: Melanie is a 65-year-old female, postop day #1 from left total knee arthroplasty. She is doing relatively well. Her pain is controlled. She has no complaints. OBJECTIVE: VITAL SIGNS: Temperature 97.5, pulse 72, respiratory rate 14, blood pressure is 117/73. GENERAL: She is alert, responsive, appropriate with examiner, and conversant. EXTREMITIES: Incision is clean. No strike through. No erythema. She is neurovascularly intact in the left lower extremity. LABORATORY DATA: Hemoglobin and hematocrit 11.3 and 34.3. IMPRESSION: A 65-year-old female, postoperative day #1, left total knee arthroplasty, doing well. PLAN: Continue current care. Initiate physical therapy. Continue to observe for hemorrhage. Follow H and H. Also, follow on pain control. Job ID: [id number]
[2020-08-09] MEDS: Lisinopril 10 MG TAB PO SCH (20:10)
[2020-08-10] MEDS: Ketorolac Tromethamine 30 MG/ML VIAL IVP SCH ×2 (01:07→08:06)
[2020-08-10] MEDS: HYDROcodone/Acetaminophen 10/325 mg Tablet PO PRN ×2 (01:10→08:07)
[2020-08-10 05:34] LABS: Mean Corpuscular HGB CONC 32.5 g/dL (32.0-36.0); Mean Corpuscular Hemoglobin 29.5 pg (27.0-31.0); Mean Corpuscular Volume 90.7 fL (78.0-98.0); Mean Platelet Volume 7.5 fL (7.4-10.4); Platelet Count 183 thou/uL (130-400); RBC Distribution Width 11.5 % (11.5-14.5); Red Blood Cell (RBC) Count 3.75 mill/uL (4.20-5.40); White Blood Cell (WBC) Count 10.2 thou/uL (4.8-10.8)
[2020-08-10] MEDS: Ascorbic Acid 500 mg Chewable Tablet PO SCH (08:07)
[2020-08-10] MEDS: Cholecalciferol 1,000 UNITS (25 MCG) TAB PO SCH (08:08)
[2020-08-10] MEDS: Aspirin 81 mg Enteric Coated Tablet PO SCH (08:08)
[2020-08-10] MEDS: Ferrous Gluconate 324 MG TAB PO SCH (08:08)
[2020-08-10] MEDS: Multivitamin W/ Minerals 1 TAB PO SCH (08:08)
[2020-08-10] MEDS: Senokot S 8.6-50 MG TAB PO SCH (08:09)
[2020-08-10] MEDS: Sodium Chloride 0.9% 1,000 ML IV SCH (08:09)
[2020-08-10 11:36] VITALS: BP 146/75; TEMP 97.9
== END 2020-08-10 11:58 | disposition home or self-care (01) | DRG 470 ==
LOC: EDSTATUS 14:15 → SURG A 08-08 06:28
PROVIDERS: ADMIT Orthopaedic Surgery; ATTEND Orthopaedic Surgery
PROC: 0SRD0J9 Replacement of Left Knee Joint with Synthetic Substitute, Cemented, Open Approach (ICD-10-PCS; principal; 2020-08-08)
PROC: 8E0YXBZ Computer Assisted Procedure of Lower Extremity (ICD-10-PCS; 2020-08-08)
DX: M17.12 Unilateral primary osteoarthritis, left knee (principal); Z20.822 Contact with and (suspected) exposure to COVID-19; M21.162 Varus deformity, not elsewhere classified, left knee; E03.9 Hypothyroidism, unspecified; I10 Essential (primary) hypertension; G47.33 Obstructive sleep apnea (adult) (pediatric); Z96.642 Presence of left artificial hip joint; J30.2 Other seasonal allergic rhinitis; E66.9 Obesity, unspecified; Z79.899 Other long term (current) drug therapy; Z68.31 Body mass index [BMI] 31.0-31.9, adult; Z88.0 Allergy status to penicillin; Z88.2 Allergy status to sulfonamides
CPT/HCPCS: 36415; 85027; C1713; C1776; J1100; J1885; J1956; J2250; J2405; J2704; J2795; J3010; J3370; J3490; J7050

== ENCOUNTER 2021-07-21 10:27 | Day surgery (SDC) | payer MEDICARE, OTHER ==
[2021-07-18 11:03] VITALS: BMI 30.4
[2021-07-21] MEDS ORDERED: Lidocaine 1% MPF 2 ML VIAL ONE (11:04)
[2021-07-21] MEDS ORDERED: Iothalamate Meglumine 60% 50 ML VIAL FS ONE (12:10)
[2021-07-21] MEDS ORDERED: Fentanyl 100 MCG/2 ML VIAL ONE (12:17)
[2021-07-21] MEDS ORDERED: Dexamethasone 20 MG/5 ML VIAL ONE (12:40)
[2021-07-21] MEDS ORDERED: Ondansetron PF 4 MG/2 ML Vial ONE (12:40)
[2021-07-21] MEDS ORDERED: PROPOFOL 200 MG/20 ML VIAL ONE (12:40)
[2021-07-21] MEDS ORDERED: ePHEDrine 50 MG/ML VIAL ONE (12:40)
[2021-07-21] MEDS ORDERED: Lidocaine 1% PF 5 ML VIAL ONE (12:40)
[2021-07-21] MEDS ORDERED: Levofloxacin 500 mg/D5W 100 ml Premix Bag ONE (12:57)
[2021-07-26 11:18] LABS: CA Oxalate Dihydrate 30 % (.); CA Oxalate Monohydrate 60 % (.); Color Tan (.); Stone Weight 34 mg (.)
== END 2021-07-21 15:18 | disposition home or self-care (01) ==
LOC: SDC 10:27
PROVIDERS: ATTEND Urology
PROC: 0TC78ZZ Extirpation of Matter from Left Ureter, Via Natural or Artificial Opening Endoscopic (ICD-10-PCS; principal; 2021-07-21)
PROC: 0T778DZ Dilation of Left Ureter with Intraluminal Device, Via Natural or Artificial Opening Endoscopic (ICD-10-PCS; 2021-07-21)
DX: N20.1 Calculus of ureter (principal); K21.9 Gastro-esophageal reflux disease without esophagitis; E03.9 Hypothyroidism, unspecified; Z79.82 Long term (current) use of aspirin; Z79.899 Other long term (current) drug therapy; Z88.0 Allergy status to penicillin; Z88.2 Allergy status to sulfonamides
CPT/HCPCS: 52356; 74420; 82365; C1713; C2617; 88300; J1100; J1956; J2405; J2704; J3010; J3490; Q9961-U8

== ENCOUNTER 2021-09-15 09:03 | Outpatient (CLI) | payer MEDICARE, OTHER | END 2021-09-15 09:04 | disposition home or self-care (01) | LOC: BICMAMMO 09:03 | PROVIDERS: ATTEND Family Medicine | DX: Z12.31 Encounter for screening mammogram for malignant neoplasm of breast (principal); Z13.820 Encounter for screening for osteoporosis; Z78.0 Asymptomatic menopausal state | CPT/HCPCS: 77063; 77067; 77080 ==

== ENCOUNTER 2022-09-26 15:58 | Outpatient (CLI) | payer MEDICARE, OTHER | END 2022-09-26 15:59 | disposition home or self-care (01) | LOC: BICMAMMO 15:58 | PROVIDERS: ATTEND Family Medicine | DX: Z12.31 Encounter for screening mammogram for malignant neoplasm of breast (principal) | CPT/HCPCS: 77063; 77067 ==

== ENCOUNTER 2023-06-07 08:45 | Outpatient (CLI) | payer MEDICARE, OTHER ==
[2023-06-07 10:08] LABS: Prothrombin Time 10.8 sec (9.5-12.1)
[2023-06-07 10:12] LABS: #Basophils 0.1 10x3/uL (0.0-0.2); #Eosinphils 0.2 10x3/uL (0.0-0.5); #Monocytes 0.6 10x3/uL (0.0-1.1); #Neutrophils 4.4 10x3/uL (1.5-8.4); %Basophils 0.7 % (0.0-2.0); %Eosinophils 2.7 % (0.0-6.0); %Lymphocytes 22.6 % (18.0-47.0); %Monocytes 8.7 % (0.0-10.0); %Neutrophils 65.2 % (40.0-75.0); Hematocrit 43.6 % (34.9-44.5); Hemoglobin 14.6 g/dL (12.0-15.5); Mean Corpuscular HGB CONC 33.5 g/dL (32.0-36.0); Mean Corpuscular Hemoglobin 29.9 pg (27.0-33.0); Mean Corpuscular Volume 89.2 fl (81.6-98.3); Mean Platelet Volume 9.7 fl (7.4-10.4); Platelet Count 240 10x3/uL (150-450); RBC Distribution Width 12.4 % (11.5-14.5); Red Blood Cell (RBC) Count 4.89 10x6/uL (3.90-5.03); White Blood Cell (WBC) Count 6.8 10x3/uL (3.5-10.5)
[2023-06-07 10:13] LABS: Anion Gap 14 mmol/L (10-20); BUN (Urea Nitrogen) 15 mg/dL (9.8-20.1); Calc. Creatinine Clearance 0 mL/min (70-130); Calcium 9.4 mg/dL (7.8-10.44); Carbon Dioxide 25 mmol/L (23-31); Chloride 107 mmol/L (98-107); Estimated GFR 81; Glucose 97 mg/dL (80-115); Potassium 4.6 mmol/L (3.5-5.1); Sodium 141 mmol/L (136-145)
== END 2023-06-07 08:46 | disposition home or self-care (01) ==
LOC: LABBT 08:45
PROVIDERS: ATTEND Orthopaedic Surgery
DX: Z01.818 Encounter for other preprocedural examination (principal); M17.11 Unilateral primary osteoarthritis, right knee
CPT/HCPCS: 80048; 85025; 85610; 87081; 93005; 93010

== ENCOUNTER 2023-06-11 05:30 | Inpatient (IN) | payer MEDICARE, OTHER ==
[2023-06-07 09:22] VITALS: BMI 31.6
[2023-06-11] MEDS ORDERED: Tranexamic Acid 1,000 MG/10 ML VIAL ONE (06:12)
[2023-06-11] MEDS ORDERED: Sodium Chloride 0.9% 100 ML ONE ×2 (06:13→06:58)
[2023-06-11] MEDS ORDERED: Vancomycin (BATCH) 1.5 GM/300 ML BAG ONE (06:13)
[2023-06-11] MEDS ORDERED: fentaNYL PF 100 MCG/2 ML SYRINGE ONE (06:24)
[2023-06-11] MEDS ORDERED: Midazolam HCl 2 mg/2 ml Vial ONE (06:25)
[2023-06-11] MEDS ORDERED: Propofol 500 MG/50 ML VIAL ONE (06:27)
[2023-06-11] MEDS ORDERED: Sevoflurane 250 ML INH ANEST BOTTLE ONE (06:28)
[2023-06-11] MEDS ORDERED: Bupivacaine PF 0.5% 30 ML VIAL ONE ×2 (06:29→07:13)
[2023-06-11] MEDS ORDERED: fentaNYL 50 mcg/mL 1 mL Vial ONE (06:49)
[2023-06-11] MEDS ORDERED: CEFAZOLIN 2 GM VIAL ONE (06:58)
[2023-06-11] MEDS ORDERED: HYDROcodone/Acetaminophen 10/325 mg Tablet PO PRN ×2 (07:02)
[2023-06-11] MEDS ORDERED: diphenhydrAMINE 25 MG CAP PO PRN (07:02)
[2023-06-11] MEDS ORDERED: Promethazine HCl 25 MG/ML VIAL IM PRN ×2 (07:02→08:00)
[2023-06-11] MEDS ORDERED: fentaNYL 50 mcg/mL 1 mL Vial SLOW IVP PRN ×3 (07:02→07:49)
[2023-06-11] MEDS ORDERED: Ondansetron PF 4 MG/2 ML Vial IVP PRN ×2 (07:02→08:00)
[2023-06-11] MEDS ORDERED: Zolpidem Tartrate 5 MG TAB PO PRN ×2 (07:02→08:00)
[2023-06-11] MEDS ORDERED: Non-Formulary Item 1 EACH (Esomeprazole Magnesium [Nexium] 20 MG Capsule.Dr) PO PRN (07:04)
[2023-06-11] MEDS ORDERED: EPINEPHrine 1 MG/ML VIAL ONE (07:12)
[2023-06-11] MEDS ORDERED: Lidocaine 1% PF 5 ML VIAL ONE (07:27)
[2023-06-11] MEDS ORDERED: Ondansetron PF 4 MG/2 ML Vial ONE ×2 (07:27→08:09)
[2023-06-11] MEDS ORDERED: Ketorolac Tromethamine 30 MG (1 mL) VIAL ONE ×2 (07:27→08:51)
[2023-06-11] MEDS ORDERED: PHENYLEPHRINE-NS 100 MCG/ML 10 ML SYRINGE ONE (07:43)
[2023-06-11] MEDS ORDERED: Ropivacaine 0.2% 550 ML 550 ML NERVE BLCK SCH (08:00)
[2023-06-11] MEDS ORDERED: traMADol HCl 50 MG TAB PO PRN ×2 (08:00)
[2023-06-11] MEDS ORDERED: PROPOFOL 20 ML ONE (08:31)
[2023-06-11] MEDS ORDERED: SUB SL SCH (09:00)
[2023-06-11] MEDS ORDERED: Non-Formulary Item 1 EACH (Cholecalciferol (Vitamin D3) [Vitamin D3] 5,000 UNIT Capsule) PO SCH (09:00)
[2023-06-11] MEDS ORDERED: ASCORBIC ACID 1000 MG PO SCH (09:00)
[2023-06-11] MEDS ORDERED: Non-Formulary Item 1 EACH (Zinc [Zinc] 50 MG Tablet) PO SCH (09:00)
[2023-06-11] MEDS ORDERED: THYROID PORK 15 MG PO SCH (09:00)
[2023-06-11] MEDS ORDERED: [UNRECOGNIZED DRUG - OTHER] SL SCH (09:00)
[2023-06-11] MEDS ORDERED: CYANOCOBALAMIN 2500 MCG SL SCH (09:00)
[2023-06-11] MEDS ORDERED: VITAMIN E 400 UNIT PO SCH (09:00)
[2023-06-11] MEDS ORDERED: Non-Formulary Item 1 EACH (Lisinopril [Zestril] 40 MG Tablet) PO SCH (09:00)
[2023-06-11] MEDS: Aspirin 81 mg Enteric Coated Tablet PO SCH (10:44)
[2023-06-11] MEDS: Sodium Chloride 0.9% 1,000 ML IV SCH (10:44)
[2023-06-11] MEDS: Ascorbic Acid 500 mg Chewable Tablet PO SCH (10:44)
[2023-06-11] MEDS: Cholecalciferol 1,000 UNITS (25 MCG) TAB PO SCH (10:44)
[2023-06-11] MEDS: Multivitamin W/ Minerals 1 TAB PO SCH (10:45)
[2023-06-11] MEDS: Cyanocobalamin (Vitamin B-12) 1,000 MCG TAB PO SCH (10:45)
[2023-06-11] MEDS: Ferrous Gluconate 324 MG TAB PO SCH (10:45)
[2023-06-11] MEDS: Thyroid 30 MG TAB PO SCH (10:45)
[2023-06-11] MEDS: Vitamin E 400 UNITS CAP PO SCH (10:45)
[2023-06-11] MEDS: Thyroid 60 MG TAB PO SCH (10:45)
[2023-06-11] MEDS: Senokot S 8.6-50 MG TAB PO SCH (10:45)
[2023-06-11] MEDS: Lisinopril 20 MG TAB PO SCH (10:45)
[2023-06-11] MEDS: Zinc Sulfate 220 MG CAP PO SCH (10:46)
[2023-06-11] MEDS: Ketorolac Tromethamine 30 MG (1 mL) VIAL IVP SCH (12:22)
[2023-06-11] MEDS: HYDROcodone/Acetaminophen 10/325 mg Tablet PO PRN (13:36)
[2023-06-11] MEDS: CEFAZOLIN 2 GM in Sodium Chloride 0.9% 100 ML IVPB SCH (13:36)
[2023-06-11] MEDS ORDERED: Ketorolac Tromethamine 30 MG (1 mL) VIAL IVP SCH (14:00)
[2023-06-11] MEDS ORDERED: Aspirin 81 mg Enteric Coated Tablet PO SCH (21:00)
[2023-06-12 06:04] LABS: Hematocrit 34.2 % (36.0-47.0); Hemoglobin 11.2 g/dL (12.0-16.0); Mean Corpuscular HGB CONC 32.7 g/dL (32.0-36.0); Mean Corpuscular Hemoglobin 30.3 pg (27.0-31.0); Mean Corpuscular Volume 92.4 fl (78.0-98.0); Mean Platelet Volume 9.7 fL (7.4-10.4); Platelet Count 192 10x3/uL (130-400); RBC Distribution Width 12.8 % (11.5-14.5); White Blood Cell (WBC) Count 8.5 10x3/uL (4.8-10.8)
[2023-06-12 17:09] VITALS: BP 117/61; TEMP 97.7
[2023-06-12] MEDS: HYDROcodone/Acetaminophen 10/325 mg Tablet PO PRN (17:38)
[2023-06-12] MEDS: Acetaminophen 325 MG TAB PO PRN (21:06)
== END 2023-06-12 22:42 | DRG 470 ==
LOC: SDC 05:30 → SURG B 07:02
PROVIDERS: ADMIT Orthopaedic Surgery; ATTEND Orthopaedic Surgery
PROC: 0SRC0J9 Replacement of Right Knee Joint with Synthetic Substitute, Cemented, Open Approach (ICD-10-PCS; principal; 2023-06-11)
DX: M17.11 Unilateral primary osteoarthritis, right knee (principal); E03.9 Hypothyroidism, unspecified; I10 Essential (primary) hypertension; G89.29 Other chronic pain; G47.33 Obstructive sleep apnea (adult) (pediatric); Z96.642 Presence of left artificial hip joint; Z98.890 Other specified postprocedural states; Z88.0 Allergy status to penicillin; Z88.2 Allergy status to sulfonamides
CPT/HCPCS: 36415; 36416; 85027; A4306; C1776; J0171; J0665; J1885; J2250; J2405; J2704; J2795; J3010; J3370; J3490

== ENCOUNTER 2024-02-18 08:16 | Outpatient (CLI) | payer MEDICARE, OTHER | END 2024-02-18 08:17 | disposition home or self-care (01) | LOC: BICMAMMO 08:16 | PROVIDERS: ATTEND Family Medicine | DX: Z12.31 Encounter for screening mammogram for malignant neoplasm of breast (principal); Z78.0 Asymptomatic menopausal state; M85.832 Other specified disorders of bone density and structure, left forearm | CPT/HCPCS: 77063; 77067; 77080 ==

== ENCOUNTER 2025-02-18 08:50 | Outpatient (CLI) | payer MEDICARE | END 2025-02-18 08:51 | disposition home or self-care (01) | LOC: BICMAMMO 08:50 | PROVIDERS: ATTEND Family Medicine | DX: Z12.31 Encounter for screening mammogram for malignant neoplasm of breast (principal) | CPT/HCPCS: 77063; 77067 ==